=== PATIENT | male | born 1990 | race Two or more races ===

== ENCOUNTER 2018-01-19 15:44 | Emergency (ER) | payer MEDICAID, OTHER ==
[~2018-01-19] VITALS: Ht 188 cm; Wt 106.8 kg
[2018-01-19 16:01] VITALS: BP 133/85
[2018-01-19] MEDS ORDERED: HYDROcodone/acetaminophen 5mg/325mg tablet PO ONE (16:05)
[2018-01-19] MEDS ORDERED: PENI250T2 PO (16:05)
[2018-01-19] MEDS ORDERED: NAPR-56 PO (16:05)
== END 2018-01-19 16:16 | disposition home or self-care (01) ==
LOC: ER 15:44
DX: K08.89 Other specified disorders of teeth and supporting structures (principal); Z79.899 Other long term (current) drug therapy
CPT/HCPCS: 99283